=== PATIENT | female | born 1950 | race Caucasian/White ===

== ENCOUNTER 2018-06-02 05:51 | Observation (INO) | payer MEDICARE, MEDICAID ==
[~2018-06-02 05:51] MED LIST: ABILIFY 5 MG TAB5 MG PO; ADVAIR HFA 230M12 GM INH; AMBIEN 5 MG TABL5 M1 PO; AMLODIPINE; AMLODIPINE BESY10 MG PO; AMLODIPINE BESYL5 MG; ANTIVERT25 MG PO; ASPIR 8181 MG PO; ASPIRIN EC81 M1; ASPIRIN325 PO; BACLOFEN20 MG PO; BACTRIM DS TAB1 EACH PO; BUSPIRONE HCL10 MG PO; CALCIUM 600 +1 EAC1 PO; CALCIUM PO; CARVEDILOL6.25 MG; CELEBREX 200 M200 M1 PO; CLARITIN10 MG PO; CLEOCIN HCL150 MG PO; CLORAZEPATE DI7.5 M1; COLACE100 MG PO; CYCLOBENZAPRINE; CYMBALTA30 MG; CYMBALTA30 MG PO; CYMBALTA60 MG; DALIRESP500 MCG PO; DEPAKENE250 MG PO; DETROL LA4 MG; DETROL2 M1 PO; DILAUDID 2 MG TA2 MG PO; DOXEPIN 10 MG C10 M1 PO; DOXEPIN 10 MG C10 MG; DOXEPIN HCL100 MG; DULCOLAX5 MG PO; EFFEXOR XR150 MG; FENOFIBRATE160 MG PO; FERRO-TIME325 MG; FERROCITE324 M1 PO; FISH OIL 1,001000 M2 PO; FLEXERIL PO; FLONASE 0.05%50 MCG NASAL; FOLIC ACID1 MG PO; GABAPENTIN 100100 MG PO; GABAPENTIN100 MG; GLYCOLAX255 GM PO; HYDROCODONE-AP1 EAC6 PO; HYDROXYZINE HCL25 M1 PO; HYDROXYZINE PAM25 M1; IRON325 MG PO; IRON325 PO; LEVOTHYROXIN0.112 M1; LEVOTHYROXIN0.125 M1 PO; LIORESAL 10 MG10 MG PO; LIPITOR10 MG PO; LISINOPRIL10 MG; LISINOPRIL10 MG PO; LOPRESSOR25 PO; MAG-AL LIQUID30 ML PO; MAGNESIUM400 MG; MELATONIN3 MG PO; MELATONIN5 M1 PO; MILK OF MA2400 MG/10 PO; MIRABEGRON PO; MIRALAX17 GM PO; MOTION RELIEF25 MG PO; MYRBETRIQ25 MG PO; NORCO 5-325 TA1 EACH PO; OLANZAPINE7.5 MG PO; ONDANSETRON HCL4 M2 PO; OXYCODONE HCL 55 MG PO; OYSTER SHELL C1 EA15; PHENERGAN 25 MG25 M1 PO; PLAVIX 75 MG TA75 M1 PO; PRINIVIL10 MG PO; PROAIR HFA8.5 GM INH; PROTONIX40 M1 PO; PROTONIX40 M2; PULMICORT0.25 MG/3 INH; REMERON 30 MG T30 M1 PO; REMERON15 MG PO; SPIRIVA INH; SPIRIVA18 MCG INH; SYMBICORT160 MCG/4. INH; SYNTHROID PO; TOLTERODINE TART4 MG PO; TOPROL XL25 MG PO; TRANXENE T-TAB7.5 MG PO; TRICOR; TRICOR145 MG; UNICOMPLEX M TA1 TA1 PO; VALIUM5 MG PO; VITAMIN B-12500 MCG PO; VITAMIN D1000 UNI1; VITAMIN D2000 UNIT PO; VITAMINC500 PO; XARELTO10 MG PO; ZANAFLEX4 M1 PO; ZANAFLEX4 MG PO; ZANTAC 150MG T150 MG PO; ZINC10 MG PO; ZYRTEC10 M5 PO; [UNRECOGNIZED DRUG - CODE]; [UNRECOGNIZED DRUG - REMARK]
[2018-06-02 06:34] LABS: ABSOLUTE BASOPHILS 0.1 thou/uL (0.0-0.2); ABSOLUTE EOSINOPHILS 0.4 thou/uL (0.0-0.7); ABSOLUTE LYMPHOCYTES 2.4 thou/uL (0.8-5.3); ABSOLUTE MONOCYTES 0.8 thou/uL (0.0-1.2); ABSOLUTE NEUTROPHILS 6.6 thou/uL (1.6-8.1); BASOPHILS 1.1 %; EOSINOPHILS 4.1 %; HEMOGLOBIN 13.7 gm/dL (12.0-15.0); LYMPHOCYTES 23.2 %; MCH 33.7 pg (26.0-34.0); MCHC 34.2 g/dL (28.0-37.0); MCV 98.6 fL (80.0-100.0); MONOCYTES 8.1 %; MPV 8.8 fl. (7.2-11.1); NUCLEATED RBCS 0 /100WBC; PLATELET COUNT* 253 thou/uL (150-400); POLYS 63.5 %; RBC 4.05 mil/uL (4.20-5.00); RDW-CV 12.6 % (10.5-14.5); WBC 10.4 thou/uL (4.0-11.0)
[2018-06-02 06:41] LABS: CALCIUM 9.6 mg/dL (8.5-10.1); POTASSIUM 3.9 mmol/L (3.5-5.1)
[2018-06-02 06:44] LABS: APTT 28.1 Seconds (25.0-31.3); PROTIME 10.5 Seconds (9.20-11.50)
--- NOTE | 2018-06-02 10:47 | EKG ---
[place] [address] ELECTROCARDIOGRAM REPORT Name: JULIETTE GRANT Room: [facility]#: [id number] Admission: 06/02/18 Attend Phys: Carrington Meng DO Discharge: Date of : 48 Report #: [id number] THIS REPORT FOR: //name// [facility] Test Date: 2018-06-02 Test Time: 06:52:16 Pat Name: JULIETTE GRANT Department: Room: Gender: F Motion Picture Camera Operator: WHITNEY : 1950 Requested By: Carrington Meng Order Number: [id number] Luciana MD: Anthony Stewart Measurements Intervals [place] Rate: 62 P: 82 OR: 222 QRS: 79 QRSD: 106 T: 60 QT: 433 QTc: 440 Interpretive Statements Sinus rhythm Prolonged OR interval Consider left atrial enlargement Consider RVH or posterior infarct Nonspecific T abnormalities, anterior leads Baseline wander in lead(s) V2,V3,V5 Compared to ECG 10/13/2016 18:29:35 First degree AV block now present Myocardial infarct finding now present T-wave abnormality now present Electronically Signed On 06-02-2018 10:46:48 CDT by Anthony Stewart [email or web address] <ELECTRONICALLY SIGNED> By: Anthony Stewart MD, [facility] 06/02/18 1046 0652 0652 Anthony Stewart MD, [facility] /EPI
[2018-06-02 12:20] VITALS: BP 109/60
--- NOTE | 2018-06-02 12:57 | NUR ---
PT CONCERNED THAT SHE DOES NOT HAVE HER BLACK PURSE. SPOKE W/PT'S FRIEND LORRIE, AND LORRIE HAS PT'S BLACK PURSE. LORRIE TO CONTACT PT BY PHONE TO LET HER KNOW THAT SHE HAS HER PURSE.
--- NOTE | 2018-06-02 14:17 | NUR ---
PATIENT ARRIVED TO THE UNIT AT 1210. ALERT AND ORIENTED X4. ASSESSMENT COMPLETED AND CHARTED. VSS ON ROOM 4 LITERS 02. PATIENT ADMITTED FOR PAIN CONTROL AFTER OUTPATIENT SHOULDER SURGERY. PATIENT SETTLED INTO ROOM AND STATES PAIN OF 10 OUT OF 10. PATIENT ALLOWED TO REST AND STATES THAT PAIN HAS GONE DOWN TO 7 OUT OF 10. PATIENTS HOME MEDICATIONS WERE STARTED BUT PATIENT DOES NOT RECALL WHAT MEDICATIONS SHE HAD ALREADY TAKEN THIS MORNING, ALL MORNING HOME MEDS HELP UNTIL NURSE CAN VERIFY WHAT HAS BEEN TAKEN. PATIENT RESTING COMFORTABLY IN BED AT THIS TIME. HOURLY ROUNDS BEING MAINTAINED, CALL LIGHT WITHIN REACH, NURSING WILL CONTINUE TO MONITOR.
[2018-06-02 14:20] VITALS: BP 118/61
[2018-06-02 16:54] VITALS: BP 137/72
[2018-06-02 17:25] VITALS: BP 137/72
--- NOTE | 2018-06-02 18:22 | NUR ---
PATIENTS VITALS REMAIN STABLE, BLOOD PRESSURE HAS STABALIZED AND 02 HAS RETURNED TO BASELINE WITH SAT OF 97% ON 2 LITERS, WHICH SHE WEARS AT HOME. PAIN HAS BEEN MANAGED PAIN MEDICATION AND HAS DECREASED IN INTESITY. PATIENT HAS HOME HEALTH ALREADY COMING TO THE HOME AND SOMEONE TO STAY WITH HER THIS EVENING. DISCHARGED AT 1820, ALL PERSONAL BELONGINGS, PRESCRIPTIONS AND DISCHARGE INFORMATION SENT WITH PATIENT UPON DISCHARGE.
--- NOTE | 2018-06-14 08:10 | OP ---
[address] [address] OPERATIVE REPORT Name: JULIETTE GRANT Cyn Room: [address] [place]#: [id number] Admission: 06/02/18 Attend Phys: Junito Flores, Discharge: 06/02/18 Date of : 48 Report #: [id number] THIS REPORT FOR: //name// CC: Carrington Escamilla Sheldon DICTATED BY: Fernando Becerra DO DATE OF SERVICE: 06/02/2018 DIAGNOSES: 1. Left shoulder rotator cuff tear. 2. Left shoulder impingement syndrome. 3. Left shoulder type 2 SLAP tear with biceps tendinosis. 4. Left carpal tunnel syndrome. PROCEDURE: 1. Left shoulder arthroscopic surgery with arthroscopic rotator cuff repair, biceps tenotomy and debridement of labrum, subacromial decompression and acromioplasty. 2. Left carpal tunnel release. SURGEON: Carrington Meng DO FOOD DEMONSTRATOR: 1. Fernando Becerra DO 2. Pradeep Sullivan DO ANESTHESIA: General and local. ESTIMATED BLOOD LOSS: 5 mL. SPECIMENS: None. DRAINS: None. COMPLICATIONS: None. CONDITION: The patient is stable to PACU. DISPOSITION: PACU to home. INDICATIONS FOR PROCEDURE: The patient is a pleasant 67-year-old female who has had several months of left shoulder pain with progressive weakness and inability to carry out tasks with this extremity. She also has complained of numbness and tingling in the median nerve distribution. She had an EMG demonstrating [facility] [address] [place] [address] OPERATIVE REPORT Name: JULIETTE GRANT Room: [address] [place]#: [id number] Admission: 06/02/18 Attend Phys: Junito Flores, Discharge: 06/02/18 Date of : 48 Report #: [id number] carpal tunnel syndrome on the left. She also had an MRI of her shoulder demonstrating a full thickness supraspinatus tendon tear as well as bicipital labral pathology. It is recommended she be a candidate for arthroscopic shoulder surgery with rotator cuff repair and all other indicated procedures as well as a carpal tunnel release on the left. All risks, benefits, complications, indications and alternatives were reviewed with the patient and wished to proceed. DESCRIPTION OF PROCEDURE: The patient was brought to the operative suite and placed supine on a well-padded table, given the benefits of general anesthesia. At that time, she was positioned in the beach chair position. The left upper extremity was then sterilely prepped and draped in standard fashion. Timeout was taken to ensure correct patient, procedure, operative site, everybody in the room was in agreeance. At that time, a 11 blade scalpel was used to establish posterior portal incision. Blunt trocar was introduced followed by arthroscopic camera. Upon entering the joint, the subscapularis tendon was visualized and was found to be stable. There was a large [place] complex noted with a large sublabral foramen and a thickened middle glenohumeral ligament. There was degenerative tearing at the biceps insertion on the superior labrum consistent with a type 2 SLAP tear. There is mild degenerative change of the chondral surface. There is also a full thickness supraspinatus tendon tear encountered that could be seen from the undersurface of the rotator cuff. We then used an 18 gauge needle to establish an anterior portal. A blunt trocar was introduced. We then used an arthroscopic scissor to perform biceps tenotomy. Arthroscopic shaver was used to debride the undersurface of the rotator cuff as well as the bicipital labral stump. Once this was done, we transitioned to the subacromial position posteriorly. We performed a subacromial decompression with acromioplasty removing a large bone spur from the undersurface of the acromion. She had a type 3 Bigliani acromion. We then were able to better visualize our supraspinatus full thickness rotator cuff tear. We used arthroscopic shaver to debride the rotator cuff footprint. We then elected to go with a SpeedFix fixation method. We used #2 FiberTape from [employer] and passed this in a horizontal fashion. We also took a FiberLink and incorporated this into our rotator cuff tear. We then pulled this down to a single 4.75 mm SwiveLock. Once this was done, final arthroscopic images were taken with adequate holiness of the rotator cuff on the greater tuberosity at its bill moore's slough footprint. We took final arthroscopic images, removed all instruments and closed the portals with 3-0 nylon in simple interrupted fashion. Xeroform, 4 x 4s, ABD and Medipore tape were applied here at the end of the case. Prior to that, however, we then addressed the carpal tunnel syndrome. We unwrapped the hand and wrist, which had been wrapped sterilely and originally prepped. We then marked out our incision in line with the third webspace and the radial border of the fourth digit. We made a skin incision through skin and subcutaneous tissue. Once the transverse carpal ligament was encountered, we carefully incised this in line with the median nerve until the median nerve was visualized. We then used a tenotomy scissor to free [place] [address] OPERATIVE REPORT Name: JULIETTE GRANT Room: [address] [place]#: [id number] Admission: 06/02/18 Attend Phys: Junito Flores, Discharge: 06/02/18 Date of : 48 Report #: [id number] transverse carpal ligament and remove any adhesions that may be present. Tethering the nerve, we then carefully under direct visualization over scissor tips incised the transverse carpal ligament. Once the transverse carpal ligament was completely incised and the nerve was decompressed, we irrigated the wound with normal saline and closed this with 5-0 nylon in a simple interrupted fashion. Xeroform, 4 x 4s, Kerlix and Liban bandage were applied. A slingshot immobilizer placed for her immobilization for rotator cuff repair. She was then awoken from anesthesia and brought to PACU in stable condition. <ELECTRONICALLY SIGNED> By: Todd Rutherford DO 06/14/18 0810 0929 1039Alan Otis Meng DO /luis
== END 2018-06-02 18:20 | disposition home health service (06) ==
LOC: M.SUR 05:51 → M.ORTHSURG 12:42 → M.TBA 12:42 → M.ORTHSURG 12:48
PROVIDERS: Orthopaedic Surgery; ADMIT Family Medicine
DX: M75.102 Unspecified rotator cuff tear or rupture of left shoulder, not specified as traumatic (principal); M75.42 Impingement syndrome of left shoulder; M75.22 Bicipital tendinitis, left shoulder; S43.432A Superior glenoid labrum lesion of left shoulder, initial encounter; G56.02 Carpal tunnel syndrome, left upper limb; I10 Essential (primary) hypertension; E78.00 Pure hypercholesterolemia, unspecified; J44.9 Chronic obstructive pulmonary disease, unspecified; R53.1 Weakness; I95.81 Postprocedural hypotension; G89.18 Other acute postprocedural pain; F32.9 Major depressive disorder, single episode, unspecified; F41.9 Anxiety disorder, unspecified; I25.2 Old myocardial infarction; R79.1 Abnormal coagulation profile; Z87.891 Personal history of nicotine dependence

== ENCOUNTER 2018-08-19 13:34 | Emergency (ER) | payer MEDICARE, MEDICAID ==
[~2018-08-19] VITALS: Ht 152.4 cm; Wt 69.0 kg
[2018-08-19] MEDS ORDERED: SYNTHROID112 MC1 PO (14:01)
[2018-08-19 14:30] LABS: ABSOLUTE BASOPHILS 0.1 thou/uL (0.0-0.2); ABSOLUTE EOSINOPHILS 0.3 thou/uL (0.0-0.7); ABSOLUTE LYMPHOCYTES 2.2 thou/uL (0.8-5.3); ABSOLUTE MONOCYTES 1.1 thou/uL (0.0-1.2); ABSOLUTE NEUTROPHILS 6.7 thou/uL (1.6-8.1); BASOPHILS 0.7 %; EOSINOPHILS 3.4 %; HEMATOCRIT 42.2 % (37.0-47.0); HEMOGLOBIN 14.3 gm/dL (12.0-15.0); MCH 33.8 pg (26.0-34.0); MCHC 33.8 g/dL (28.0-37.0); MCV 100.1 fL (80.0-100.0); MONOCYTES 10.8 %; MPV 8.3 fl. (7.2-11.1); NUCLEATED RBCS 0 /100WBC; PLATELET COUNT* 289 thou/uL (150-400); POLYS 64.1 %; RBC 4.22 mil/uL (4.20-5.00); RDW-CV 12.2 % (10.5-14.5); WBC 10.4 thou/uL (4.0-11.0)
[2018-08-19 14:35] LABS: CALCIUM 9.5 mg/dL (8.5-10.1); POTASSIUM 4.2 mmol/L (3.5-5.1)
[2018-08-19 14:39] LABS: TOTAL BILIRUBIN 0.3 mg/dL (<0.1-1.0); TOTAL PROTEIN 6.8 g/dL (6.4-8.2)
[2018-08-19 15:12] LABS: URINE BILIRUBIN NEGATIVE (Negative); URINE BLOOD NEGATIVE (Negative); URINE CLARITY CLEAR; URINE COLOR STRAW; URINE GLUCOSE-RANDOM NEGATIVE (Negative); URINE KETONES NEGATIVE (Negative); URINE LEUKOCYTES-REFLEX NEGATIVE (Negative); URINE NITRITE-REFLEX NEGATIVE (Negative); URINE PROTEIN NEGATIVE (Negative); URINE SPECIFIC GRAVITY <= 1.005 (1.005-1.030); URINE UROBILINOGEN 0.2 E.U./dl (0.2-1.0)
[2018-08-19 15:16] LABS: AMP/METHAMP Negative (Negative); BARBITURATES Negative (Negative); BENZODIAZEPINES POSITIVE (Negative); COCAINE Negative (Negative); METHADONE Negative (Negative); OPIATES POSITIVE (Negative); PCP Negative (Negative); THC Negative (Negative)
[2018-08-19 15:35] VITALS: BP 139/65
== END 2018-08-19 15:35 | disposition home or self-care (01) ==
LOC: M.ERS 13:34
PROVIDERS: Nurse Practitioner Family
DX: T43.591A Poisoning by other antipsychotics and neuroleptics, accidental (unintentional), initial encounter (principal); I10 Essential (primary) hypertension; E78.00 Pure hypercholesterolemia, unspecified; F32.9 Major depressive disorder, single episode, unspecified; F41.9 Anxiety disorder, unspecified; Z90.49 Acquired absence of other specified parts of digestive tract; Z90.710 Acquired absence of both cervix and uterus; Z96.641 Presence of right artificial hip joint; Z96.653 Presence of artificial knee joint, bilateral; Z88.6 Allergy status to analgesic agent; Z88.0 Allergy status to penicillin; Z88.8 Allergy status to other drugs, medicaments and biological substances; Y92.89 Other specified places as the place of occurrence of the external cause

== ENCOUNTER 2018-10-06 17:40 | Inpatient (IN) | payer MEDICARE, MEDICAID ==
[~2018-10-06] VITALS: Ht 152.4 cm; Wt 68.5 kg
[~2018-10-06 17:40] MED LIST changes: -ASPIRIN325 PO; +SYNTHROID112 MC1 PO
[2018-10-06 17:59] VITALS: BP 155/66
[2018-10-06] MEDS ORDERED: GABAPENTIN 100100 MG PO (18:33)
[2018-10-06] MEDS ORDERED: DALIRESP500 MCG PO (18:35)
[2018-10-06] MEDS ORDERED: PRAZOSIN 1 MG CA1 M1 PO (18:37)
[2018-10-06] MEDS ORDERED: CLORAZEPATE DI7.5 M2 PO (18:38)
[2018-10-06] MEDS ORDERED: VITAMINC500 PO (18:39)
[2018-10-06] MEDS ORDERED: VITAMIN D5000 UNIT PO (18:40)
[2018-10-06] MEDS ORDERED: TUMS PO (18:41)
[2018-10-06] MEDS ORDERED: MAGOX 400400 MG PO (18:46)
[2018-10-06] MEDS ORDERED: ZINC50 M2 PO (18:46)
[2018-10-06] MEDS ORDERED: ZOLOFT50 MG PO (18:47)
[2018-10-06] MEDS ORDERED: AZITHROMYCIN 2250 MG PO (18:48)
[2018-10-06] MEDS ORDERED: GLYCOLAX119 GM PO (18:49)
[2018-10-06] MEDS ORDERED: FLONASE 0.05%50 MCG NASAL (18:50)
[2018-10-06] MEDS ORDERED: SYMBICORT160 MCG/4. INH (18:51)
[2018-10-06] MEDS ORDERED: ADVAIR HFA 230M12 GM INH (18:51)
[2018-10-06 18:55] LABS: ABSOLUTE BASOPHILS 0.1 thou/uL (0.0-0.2); ABSOLUTE EOSINOPHILS 0.1 thou/uL (0.0-0.7); ABSOLUTE LYMPHOCYTES 1.5 thou/uL (0.8-5.3); ABSOLUTE MONOCYTES 0.9 thou/uL (0.0-1.2); ABSOLUTE NEUTROPHILS 6.1 thou/uL (1.6-8.1); BASOPHILS 0.8 %; EOSINOPHILS 1.3 %; HEMATOCRIT 41.3 % (37.0-47.0); HEMOGLOBIN 14.5 gm/dL (12.0-15.0); LYMPHOCYTES 17.1 %; MCH 34.6 pg (26.0-34.0); MCHC 35.1 g/dL (28.0-37.0); MCV 98.6 fL (80.0-100.0); MONOCYTES 10.6 %; MPV 8.2 fl. (7.2-11.1); NUCLEATED RBCS 0 /100WBC; PLATELET COUNT* 267 thou/uL (150-400); POLYS 70.2 %; RBC 4.19 mil/uL (4.20-5.00); RDW-CV 12.6 % (10.5-14.5); WBC 8.7 thou/uL (4.0-11.0)
[2018-10-06 19:10] LABS: ANION GAP 4 mmol/L (7-16); BUN 15 mg/dL (7-18); CALCIUM 10.4 mg/dL (8.5-10.1); CHLORIDE 94 mmol/L (98-107); CO2 35 mmol/L (21-32); CREATININE 0.8 mg/dL (0.6-1.3); GLUCOSE 112 mg/dL (70-99); POTASSIUM 4.6 mmol/L (3.5-5.1); SODIUM 133 mmol/L (136-145)
[2018-10-06 19:11] LABS: ALBUMIN 3.7 g/dL (3.4-5.0); ALKALINE PHOSPHATASE 61 U/L (46-116); NT-PRO BRAIN NAT PEPTIDE 213 pg/mL (<300); SGOT 30 U/L (15-37); SGPT 30 U/L (30-65); TOTAL BILIRUBIN 0.3 mg/dL (<0.1-1.0); TROPONIN-I LEVEL <0.06 ng/mL (<0.06)
[2018-10-06 19:16] LABS: INFLUENZA A ANTIGEN None Detected (None Detect); INFLUENZA B ANTIGEN None Detected (None Detect)
[2018-10-06 19:55] LABS: HCO3 33.8 mmol/L (22.0-26.0); PO2 67.4 mmHg (75.0-100.0)
[2018-10-06 19:57] LABS: PCO2 62.6 mmHg (35.0-45.0)
[2018-10-06 20:29] VITALS: BP 139/69
[2018-10-06 21:00] VITALS: BP 133/67
[2018-10-07 07:55] VITALS: BP 104/59
[2018-10-07 11:03] LABS: BE 0.8 mmol/L (-2 to +3); HCO3 26.1 mmol/L (22.0-26.0); PCO2 44.1 mmHg (35.0-45.0); PO2 86.4 mmHg (75.0-100.0)
--- NOTE | 2018-10-07 12:42 | EKG ---
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: JOSE : 1950 Requested By: Kamilah Melendez Order Number: [id number] MD: Anthony Stewart Measurements Intervals [place] Rate: 74 P: 69 TN: 190 QRS: 54 QRSD: 104 T: 55 QT: 395 QTc: 439 Interpretive Statements Sinus rhythm Compared to ECG 06/02/2018 06:52:16 First degree AV block no longer present Myocardial infarct finding no longer present T-wave abnormality no longer present Electronically Signed On 10-07-2018 12:41:50 CLINICAL MASSAGE THERAPIST by Anthony Stewart [email or web address] <ELECTRONICALLY SIGNED> By: Anthony Stewart MD, FACC 10/07/18 1241 12 12 Anthony Stewart MD, FAC /EPI
[2018-10-07 15:52] VITALS: BP 129/58
--- NOTE | 2018-10-07 18:33 | NUR ---
PATIENT A&OX4, 2L O2 VIA NC, IV LEFT WRIST FLUIDS INFUSSING. UP AD ISABEL, STEADY GAIT. C/O HEADACHE, PARTIAL RELIEF WITH MEDICATION. HOME MEDICATION BROUGHT IN AND ADMINISTER, REHAN IN [place]. NO OTHER CONCERNS AT THIS TIME. APPROPRIATE AND COOPORATIVE WITH CARE. WILL CONTINUE TO MONITOR.
[2018-10-07 22:00] VITALS: BP 119/57
[2018-10-08 05:00] LABS: HEMATOCRIT 35.1 % (37.0-47.0); MCH 33.5 pg (26.0-34.0); MCHC 33.8 g/dL (28.0-37.0); MPV 8.6 fl. (7.2-11.1); RBC 3.54 mil/uL (4.20-5.00); RDW-CV 12.4 % (10.5-14.5)
[2018-10-08 05:20] LABS: HEMOGLOBIN 11.9 gm/dL (12.0-15.0)
[2018-10-08 05:22] LABS: CALCIUM 8.8 mg/dL (8.5-10.1); CREATININE 0.8 mg/dL (0.6-1.3); MAGNESIUM 1.4 mg/dL (1.8-2.4); POTASSIUM 4.7 mmol/L (3.5-5.1); TOTAL BILIRUBIN 0.2 mg/dL (<0.1-1.0); TOTAL PROTEIN 5.3 g/dL (6.4-8.2)
--- NOTE | 2018-10-08 06:04 | NUR ---
PATIENT HAS NOT RESTED WELL THIS SHIFT, WOULD LIKE TO GET SOMETHING ORDERED FOR SLEEP FOR TONIGHT. VITAL SIGNS HAVE BEEN STABLE ON 2 LITERS OF OXYGEN. UP AD ISABEL IN ROOM. CALL LIGHT IS IN REACH, WILL CONTINUE TO MONITOR.
[2018-10-08 07:55] VITALS: BP 139/64
[2018-10-08 15:00] VITALS: BP 129/59
--- NOTE | 2018-10-08 17:59 | NUR ---
PATIENT A&OX4, 2L O2 VIA NC. IV LEFT FOREARM FLUIDS INFUSSING. UP AD ISABEL, STEADY GIAT. C/O SORE THROAT, CHLORASEPTIC SPRAY ORDERED PRN. NO SIGNS OF THRUSH NOTED. PATIENT STATES SHE TAKES MECLIZINE QID SCHEDULED AT HOME, GIVEN PRN HERE. AMBIAN STARTED FOR SLEEP AIDE. C/O HEADACHE, RELEIF WITH MEDICATION. SHOWER TODAY. NO OTHER CONCERNS AT THIS TIME. APPROPRIATE AND COOPORATIVE WITH CARE. WILL CONTINUE TO MONITOR.
[2018-10-08 19:40] VITALS: BP 101/53
--- NOTE | 2018-10-09 06:36 | NUR ---
PATIENT RESTED WELL THROUGH OUT THE SHIFT, SAID SLEEPIN MEDICATION HELPED. UP AD ISABEL IN ROOM WITH OXYGEN EXTENSION TUBING. VITAL SIGNS STABLE ON 2 LITERS OF OXYGEN. CALL LIGHT IS IN REACH, WILL CONTINUE TO MONITOR.
[2018-10-09 08:00] VITALS: BP 119/65
--- NOTE | 2018-10-09 15:12 | NUR ---
SW met with pt to complete initial assessment, introduce self, and SW role. Pt alert, oriented. Pt lives at home alone but does have in home caregivers 4 hours a day, everyday. Pt has home oxygen through [facility]. Pt has history with [facility] for SNF after a hip replacement. SW to continue to follow to assist with safe dc planning.
--- NOTE | 2018-10-09 15:45 | NUR ---
PT ORDERS RECEIVED FOR EVALUATION AND TREATMENT ON 10/07/18. EVALUATION COMPLETED ON 10/07/18. PT WAS INDEPENDENT WITH ALL FUNCTIONAL MOBILITY W/O DME SUPPORT INCLUDING MOD INDEP FOR AMBULATION UP/DOWN 6 STEPS. PT DISCHARGED FROM PT SERVICES 2/2 INDEP STATUS AND ACUTE PT SERVICES NOT INDICATED AT THIS TIME. SPOKE W/ NSG REGARDING RECEIPT OF NEW ORDERS TO EVALUATE AND TREAT INITIATED ON 10/09/18. NSG INDICATES PT IS UP AD ISABEL IN ROOM INDEPENDENT AND HAS NOT SUSTAINED A CHANGE IN MEDICAL STATUS SINCE LAST PT EVAL. NO ACUTE PT SERVICES ARE INDICATED AT THIS TIME.
[2018-10-09 16:04] VITALS: BP 137/63
--- NOTE | 2018-10-09 17:35 | NUR ---
PT REMAINED ALERT AND ORIENTED THIS SHIFT. PT IV FLUDIS DC'D. PT IV INFILTRATED, NEW IV STARTED IN RT FA BY INFUSIONS. PT IS STILL ON 2 LITERS O2. FALL RISK PRECAUTIONS IN PLACE. HOURLY ROUNDING COMPELTED. WILL CONTINUE TO MONITOR.
[2018-10-10 00:32] VITALS: BP 141/58
[2018-10-10 04:00] LABS: CALCIUM 9.9 mg/dL (8.5-10.1); MAGNESIUM 1.6 mg/dL (1.8-2.4); POTASSIUM 4.4 mmol/L (3.5-5.1)
[2018-10-10 04:03] LABS: HEMATOCRIT 36.2 % (37.0-47.0); HEMOGLOBIN 12.6 gm/dL (12.0-15.0); MCH 34.3 pg (26.0-34.0); MCHC 34.7 g/dL (28.0-37.0); MPV 8.4 fl. (7.2-11.1); NUCLEATED RBCS 0 /100WBC; PLATELET COUNT* 271 thou/uL (150-400); RBC 3.66 mil/uL (4.20-5.00); RDW-CV 12.6 % (10.5-14.5); WBC 12.5 thou/uL (4.0-11.0)
[2018-10-10 06:09] LABS: ABSOLUTE LYMPHOCYTES 0.9 thou/uL (0.8-5.3); ABSOLUTE MONOCYTES 0.5 thou/uL (0.0-1.2); ABSOLUTE NEUTROPHILS 11.1 thou/uL (1.6-8.1); PLATELET ESTIMATE ADEQUATE
[2018-10-10 06:10] LABS: ANISOCYTOSIS 1+; POIKILOCYTOSIS 1+
--- NOTE | 2018-10-10 06:36 | NUR ---
PT SLEPT WELL OVERNIGHT. UP AD ISABEL IN ROOM WITH O2 2L AND EXTENSION TUBING. RFA SL, SOLUMEDROL GIVEN ORDERED. TYLENOL GIVEN AT HS FOR HEADACHE WITH GOOD RESULT. AM LABS DRAWN. ABLE TO USE CALL LITE AND MAKE NEEDS KNOWN. RT TX GIVEN SCHEDULED. HOPEFUL FOR DISCHARGE SOON.
[2018-10-10 07:55] VITALS: BP 142/67
[2018-10-10] MEDS ORDERED: LOPRESSOR25 PO (14:29)
[2018-10-10] MEDS ORDERED: LEVAQUIN 750 M750 MG PO (14:32)
[2018-10-10] MEDS ORDERED: PREDNISONE 10 M10 MG PO (14:33)
[2018-10-10 15:28] VITALS: BP 142/67
[2018-10-10 15:58] VITALS: BP 142/67
[2018-10-10 17:57] VITALS: BP 142/67
--- NOTE | 2018-10-10 18:32 | NUR ---
PATIENT A&OX4, 2L O2 VIA NC, ON AT HOME. IV RIGHT FOREARM SALINE LOCK. IV INFILTRATED, REDNESS AND SWELLING NOTED. IV DISCONTINUED, CATHETER FULLY INTACT. HEAT APPLIED, REDNESS AND SWELLING DECREASED. C/O HEADACHE, RELIEF WITH MEDICATION AND COFFEE. UP AD ISABEL, STEADY GAIT. NO OTHER CONCERNS AT THIS TIME. PATIENT DISCHARGED, REVIEWED PAPERWORK ALL QUESTIONS AND CONCERNS ANSWERED. NEW PRESCRIPTIONS GIVEN. PATIENT LEFT UNIT AT 1830 VIA W/C WITH FAMILY FRIEND. ALL BELONGINGS TAKEN WITH, NOTHING LEFT BEHIND. APPROPRIATE AND COOPORATIVE WITH CARE.
[2018-10-11 02:06] LABS: ADENOVIRUS Negative (Negative); INFLUENZA A Negative (Negative); INFLUENZA B Negative (Negative); METAPNEUMOVIRUS Negative (Negative); PARAINFLUENZA 1 Negative (Negative); PARAINFLUENZA 2 Negative (Negative); PARAINFLUENZA 3 Negative (Negative); RHINOVIRUS Negative (Negative); RSV A Negative (Negative); RSV B Negative (Negative)
== END 2018-10-10 18:30 | disposition home health service (06) | DRG 871 ==
LOC: M.ERS 17:40 → M.TBA-ER 19:31 → M.3W 19:31
PROVIDERS: Family Medicine; Internal Medicine; Nurse Practitioner Family; ADMIT Internal Medicine
DX: A41.9 Sepsis, unspecified organism (principal); J96.21 Acute and chronic respiratory failure with hypoxia; J44.1 Chronic obstructive pulmonary disease with (acute) exacerbation; I10 Essential (primary) hypertension; E78.00 Pure hypercholesterolemia, unspecified; Z96.653 Presence of artificial knee joint, bilateral; F32.9 Major depressive disorder, single episode, unspecified; F41.9 Anxiety disorder, unspecified; Z96.641 Presence of right artificial hip joint; Z90.710 Acquired absence of both cervix and uterus; Z87.891 Personal history of nicotine dependence; I25.2 Old myocardial infarction; Z95.5 Presence of coronary angioplasty implant and graft; Z90.49 Acquired absence of other specified parts of digestive tract; Z79.82 Long term (current) use of aspirin; Z79.899 Other long term (current) drug therapy; Z88.0 Allergy status to penicillin; Z88.8 Allergy status to other drugs, medicaments and biological substances; Z82.49 Family history of ischemic heart disease and other diseases of the circulatory system; Z23 Encounter for immunization

== ENCOUNTER → 2019-04-19 | Outpatient (CLI) | payer MEDICARE, MEDICAID ==
[~2019-04-19] MED LIST changes: +AZITHROMYCIN 2250 MG PO; +CLORAZEPATE DI7.5 M2 PO; +GLYCOLAX119 GM PO; +LEVAQUIN 750 M750 MG PO; +MAGOX 400400 MG PO; +PRAZOSIN 1 MG CA1 M1 PO; +PREDNISONE 10 M10 MG PO; +TUMS PO; +VITAMIN D5000 UNIT PO; +ZINC50 M2 PO; +ZOLOFT50 MG PO
== END ==
LOC: M.LAB 12:30 → M.MRI 13:30
PROVIDERS: Orthopaedic Surgery
DX: G57.21 Lesion of femoral nerve, right lower limb (principal); Z96.641 Presence of right artificial hip joint; Z96.651 Presence of right artificial knee joint

== ENCOUNTER → 2019-06-04 | Outpatient (CLI) | payer MEDICARE, MEDICAID | LOC: M.MRI 16:39 | DX: M25.461 Effusion, right knee (principal); M79.661 Pain in right lower leg ==

== ENCOUNTER 2019-06-10 09:44 | Emergency (ER) | payer MEDICARE, MEDICAID ==
[~2019-06-10] VITALS: Ht 152.4 cm; Wt 66.7 kg
[2019-06-10 10:17] LABS: ABSOLUTE BASOPHILS 0.1 thou/uL (0.0-0.2); ABSOLUTE EOSINOPHILS 0.2 thou/uL (0.0-0.7); ABSOLUTE LYMPHOCYTES 1.1 thou/uL (0.8-5.3); ABSOLUTE MONOCYTES 1.1 thou/uL (0.0-1.2); ABSOLUTE NEUTROPHILS 9.2 thou/uL (1.6-8.1); BASOPHILS 0.7 %; EOSINOPHILS 2.1 %; HEMATOCRIT 37.4 % (37.0-47.0); HEMOGLOBIN 12.8 gm/dL (12.0-15.0); LYMPHOCYTES 9.8 %; MCHC 34.2 g/dL (28.0-37.0); MCV 99.3 fL (80.0-100.0); MONOCYTES 9.4 %; MPV 7.8 fl. (7.2-11.1); NUCLEATED RBCS 0 /100WBC; PLATELET COUNT* 270 thou/uL (150-400); RBC 3.77 mil/uL (4.20-5.00); RDW-CV 12.4 % (10.5-14.5); WBC 11.7 thou/uL (4.0-11.0)
[2019-06-10 10:24] LABS: CALCIUM 9.2 mg/dL (8.5-10.1); CREATININE 0.9 mg/dL (0.6-1.3); POTASSIUM 4.3 mmol/L (3.5-5.1)
[2019-06-10 10:29] LABS: ALBUMIN 3.8 g/dL (3.4-5.0); TOTAL BILIRUBIN 0.3 mg/dL (<0.1-1.0); TOTAL PROTEIN 6.4 g/dL (6.4-8.2)
[2019-06-10 11:32] VITALS: BP 129/61
--- NOTE | 2019-06-11 10:26 | EKG ---
[place] [address] ELECTROCARDIOGRAM REPORT Name: JULIETTE GRANT Room: [facility]#: [id number] Admission: 06/10/19 Attend Phys: Discharge: 06/10/19 Date of : 48 Report #: [id number] THIS REPORT FOR: //name// [facility] ED Test Date: 2019-06-10 Test Time: 10:36:59 Pat Name: JULIETTE GRANT Department: Room: Gender: F Melter Caster: : 1950 Requested By: Lorenzo Chowdhury Order Number: [id number] MD: Rigo Gasca Measurements Intervals [place] Rate: 70 P: 68 GA: 189 QRS: 50 QRSD: 102 T: 52 QT: 407 QTc: 440 Interpretive Statements Sinus rhythm Compared to ECG 10/06/2018 19:13:50 No significant changes Electronically Signed On 06-11-2019 10:25:58 CDT by Rigo Gasca [email or web address] <ELECTRONICALLY SIGNED> By: Rigo Gasca MD, [facility] 06/11/19 1025 1036 1036 Rigo Gasca MD, FACC /EPI
== END 2019-06-10 11:38 | disposition home or self-care (01) ==
LOC: M.ERS 09:44
PROVIDERS: Family Medicine
DX: F41.0 Panic disorder [episodic paroxysmal anxiety] (principal); I10 Essential (primary) hypertension; E78.00 Pure hypercholesterolemia, unspecified; I25.2 Old myocardial infarction; F32.9 Major depressive disorder, single episode, unspecified; J44.9 Chronic obstructive pulmonary disease, unspecified; Z90.710 Acquired absence of both cervix and uterus; Z96.653 Presence of artificial knee joint, bilateral; Z98.890 Other specified postprocedural states; Z96.641 Presence of right artificial hip joint; Z95.2 Presence of prosthetic heart valve; Z88.5 Allergy status to narcotic agent; Z88.0 Allergy status to penicillin; Z88.8 Allergy status to other drugs, medicaments and biological substances

== ENCOUNTER → 2019-07-27 | Day surgery (SDC) | payer MEDICARE, MEDICAID ==
[~2019-07-27] MED LIST changes: +CALCIUM CARBON500 MG PO; +FISH OIL 1,0001 EAC9 PO; +MECLIZINE HCL25 MG PO; +METOPROLOL TART25 MG PO; +NORCO 5-325 TA1 EAC1 PO; +TIZANIDINE HCL4 M1 PO; +VITAMIN C1000 MG PO; +VITAMIN D31000 UNI2 PO
[2019-07-27 06:42] LABS: HEMATOCRIT 36.8 % (37.0-47.0); HEMOGLOBIN 12.4 gm/dL (12.0-15.0); MCH 33.9 pg (26.0-34.0); MCHC 33.6 g/dL (28.0-37.0); MCV 100.9 fL (80.0-100.0); MPV 8.9 fl. (7.2-11.1); RBC 3.65 mil/uL (4.20-5.00); WBC 11.4 thou/uL (4.0-11.0)
[2019-07-27 06:53] LABS: CALCIUM 9.4 mg/dL (8.5-10.1); POTASSIUM 4.2 mmol/L (3.5-5.1)
[2019-07-27 07:03] LABS: ALBUMIN 4.1 g/dL (3.4-5.0); TOTAL BILIRUBIN 0.2 mg/dL (<0.1-1.0); TOTAL PROTEIN 6.8 g/dL (6.4-8.2)
--- NOTE | 2019-08-03 09:04 | OP ---
[facility] [address] [place] [address] OPERATIVE REPORT Name: JULIETTE GRANT Room: [facility].#: [id number] Admission: 07/27/19 Attend Phys: Carrington Meng DO Discharge: Date of : 48 Report #: [id number] THIS REPORT FOR: //name// CC: Carrington Castellanos DATE OF SERVICE: 07/27/2019 DICTATED BY: Dr. Alessandro Hansen dictating operative report on behalf of Dr. Carrington Meng. PREOPERATIVE DIAGNOSIS: Right thumb stenosing tenosynovitis (trigger thumb). POSTOPERATIVE DIAGNOSIS: Right thumb stenosing tenosynovitis (trigger thumb). OPERATION PERFORMED: Release of right trigger thumb. SURGEON: Carrington Meng DO INSIDE FINISHER: Alessandro Hansen DO ANTIBIOTICS: 600 mg clindamycin given preoperatively. ESTIMATED BLOOD LOSS: 1 mL. ANESTHESIA: MAC with local infiltration. SPECIMENS: None. DRAINS: None. COMPLICATIONS: None. CONDITION: Stable. DISPOSITION: PACU to home. INDICATIONS FOR PROCEDURE: The patient is a pleasant 68-year-old female [facility] regarding her right thumb clicking and catching for about 4 months. She had tried bracing and anti-inflammatories with no relief of her symptoms. This is becoming very bothersome for her and she was hoping to have something done. Therefore, we did discuss with her treatment options. We discussed risks, indications, and treatment alternatives as well and ultimately her informed consent was signed for [place] [address] OPERATIVE REPORT Name: JULIETTE GRANT Room: [facility].#: [id number] Admission: 07/27/19 Attend Phys: Carrington Meng DO Discharge: Date of : 48 Report #: [id number] DESCRIPTION OF PROCEDURE: The patient was taken to the operating suite and placed on the operating table in supine position where sedation was then given to the patient. The patient's arm was placed on the hand table. A well-padded pneumatic tourniquet was placed on the right proximal thigh. This was inflated for a total of 10 minutes throughout the procedure at 250 mmHg. The right upper extremity was then sterilely prepped and draped free in the usual fashion. A time-out was then performed to confirm our safety checklist was then completed and all of the OR personnel was in agreement. A transverse incision was marked out over the volar aspect of the thumb overlying the metacarpophalangeal joint. Sharp dissection was carried down with a 15 blade scalpel through the skin and blunt dissection was carried down to the level of the A1 jaqueline. The overlying fat tissue was swept off the jaqueline and the jaqueline was completely identified. It was then transected utilizing scissors. The flexor tendons were then pulled from the incision and identified and there was no significant pathology noted. The thumb was taken through full range of motion and there was no residual clicking or catching. The wound was then copiously irrigated and the incision was closed with simple interrupted 4-0 nylon sutures. Sterile bandage was then applied with Xeroform, 4 x 4's, Kerlix and an Liban bandage. The patient tolerated the procedure well and was transferred to the PACU in stable condition. There were no apparent complications. Sponge and needle counts were reported correct per the OR personnel. ATTESTATION: Dr. Meng was present for all critical aspects of the operation. <ELECTRONICALLY SIGNED> By: Carrington Meng DO 08/03/19 0904 0917 0940Carrington Meng DO /nt
== END | disposition home or self-care (01) ==
LOC: M.SUR 05:59
PROVIDERS: Orthopaedic Surgery
DX: M65.841 Other synovitis and tenosynovitis, right hand (principal); M65.311 Trigger thumb, right thumb; J44.9 Chronic obstructive pulmonary disease, unspecified; Z98.890 Other specified postprocedural states; Z86.711 Personal history of pulmonary embolism; Z79.01 Long term (current) use of anticoagulants; Z87.440 Personal history of urinary (tract) infections; Z88.0 Allergy status to penicillin; Z88.8 Allergy status to other drugs, medicaments and biological substances; Z79.899 Other long term (current) drug therapy; Z79.82 Long term (current) use of aspirin

== ENCOUNTER 2019-12-20 11:45 | Emergency (ER) | payer MEDICARE, MEDICAID ==
[~2019-12-20] VITALS: Ht 152.4 cm; Wt 68.0 kg
[2019-12-20] MEDS ORDERED: MEDROLDOSEPACK PO (13:48)
[2019-12-20 14:23] VITALS: BP 142/61
== END 2019-12-20 14:26 | disposition home or self-care (01) ==
LOC: M.ERS 11:45
DX: J44.9 Chronic obstructive pulmonary disease, unspecified (principal); R51 Headache; I10 Essential (primary) hypertension; E78.00 Pure hypercholesterolemia, unspecified; Z88.6 Allergy status to analgesic agent; Z88.0 Allergy status to penicillin; Z88.5 Allergy status to narcotic agent; Z88.8 Allergy status to other drugs, medicaments and biological substances; Z90.710 Acquired absence of both cervix and uterus; Z90.49 Acquired absence of other specified parts of digestive tract; Z96.641 Presence of right artificial hip joint; Z96.653 Presence of artificial knee joint, bilateral

== ENCOUNTER 2021-08-29 01:42 | Observation (INO) | payer MEDICARE, MEDICAID ==
[~2021-08-29] VITALS: Ht 152.4 cm; Wt 72.6 kg
--- NOTE | ~2021-08-29 | EMS ---
[address] [address] EMS Patient Care Report Name: JULIETTE GRANT Room: [address] [place]#: [id number] Admission: 08/29/21 Attend Phys: Shannan Dahl MD Discharge: Date of : 48 Report #: [id number] THIS REPORT FOR: //name// Report Transmitted: 08/29/2021 06:23 EMS Care Summary [facility] [place] Incident [id number] @ 08/29/2021 00:52 Incident Location [address] [place] [address] Patient Juliette Grant Female, 70 Years 1950 Patient Address [address] [place] [address] Patient History Anxiety disorder, unspecified,Personality disorder, unspecified,Anemia, unspecified,Chronic Obstructive Pulmonary Disease (COPD),Gastro-Esophageal Reflux Disease (GERD),Hypothyroidism, unspecified,History of falling, Patient Allergies , Patient Medications cilostazol, , Metoprolol, Clopidogrel, Chief Complaint Shortness of Breath Disposition Transported No Lights/[place] Dispatch Reason Breathing Problem Transported To [facility] Narrative Dispatched for SOA, arrive on scene to the patients nurse meeting EMS at the front door. Nurse states patient is stating she wants to just get out of the [address] [address] EMS Patient Care Report Name: JULIETTE GRANT Room: [address]#: [id number] Admission: 08/29/21 Attend Phys: Shannan Dahl MD Discharge: Date of : 48 Report #: [id number] facility and is stating she has difficulty breathing. Find the patient sitting upright in her room. Patient is currently on her oxygen concentrator and apporximateyl 20 feet of tubing. She does not appear to have any difficulty breathing, I see no obvious elevated work of breathing, she is speaking in full sentences while talking to EMS. SHe has a steady and even radial pulse. Patient states to EMS that her facility it terrible, that they give her bad nasal cannula that will not stay in her nose. Along with not letting her walk outside to gain strength in her legs. She also states that sometimes her concentrator will work and sometimes it does not. She has said her breathing as gotten worse over a week. She does have a history of COPD and does daily inhaler treatments. Primary assessment completed. Obtained patients version of secondary history. Patient was able to walk without incident to the cot without assistance. Fasten all safety belts and loaded into ambulance. Placed patient on the monitor abd obtained vitals. Gained a 12 lead EKG. Obtained IV access. Began transport to [facility]. En route, patient rested comfortably on the cot. I spoke more about how the patient feels about her facility, where she began to cry stating she just did not feel safe there. I stated the to let the hospital know and that they will have some resources to help her. Her vitals were monitored every ten minutes, hey always remained stable. Gave radio report to Ang. Arrived and unloaded patient without incident, took her to ER room 15. She was moved by draw sheet without incident to the bed. Gave report to receiving nurse, highlighting the facility issues the patient has. Obtained RN signature. Witnessed patient sign for herself. Initial Vitals @01:20SpO2: 95, @:25SpO2: 95, @:28SpO2: 93, @01:11 @01:12 @01:14P: 75,R: 18,BP: 150/74, @:28P: 77,R: 18,BP: 149/74, @:14GCS: 15, @:28GCS: 15, @01:00 @01:20Glucose: 115, Assessments @01:00MENTAL:SKIN:HEENT:LUNG SOUNDS:ABDOMEN:PELVIS//GI:EXTREMITIES:PULSE:NEURO: Impression Acute Respiratory Distress (Dyspnea) Procedures @01:06 Oxygen Complications: , Response: [place] [address] EMS Patient Care Report Name: JULIETTE GRANT Room: [address] [place] M.R.#: [id number] Admission: 08/29/21 Attend Phys: Shannan Dahl MD Discharge: Date of : 48 Report #: [id number] @01:19 IV Therapy - cc () Site: Antecubital-Left Response: UnchangedSucceeded @01:11 12-Lead ECG Response: UnchangedSucceeded @01:12 12-Lead ECG Response: UnchangedSucceeded Timeline 00:00,Call Received 00:52,Dispatch Notified 00:52,Psap Call 00:52,Dispatched 00:52,En Route 00:57,On Scene 01:00,At Patient 01:00,BP: / M,PULSE: ,RR: R,SPO2: Ox,ETCO2: ,BG: ,PAIN: ,GCS: , 01:06,Oxygen Complications: ,,Response: Unchanged 01:11,12-Lead ECG,Response: UnchangedSucceeded, 01:11,BP: / M,PULSE: ,RR: R,SPO2: Ox,ETCO2: ,BG: ,PAIN: ,GCS: , 01:12,12-Lead ECG,Response: UnchangedSucceeded, 01:12,BP: / M,PULSE: ,RR: R,SPO2: Ox,ETCO2: ,BG: ,PAIN: ,GCS: , 01:14,BP: 150/74 M,PULSE: 75,RR: 18 R,SPO2: Ox,ETCO2: ,BG: ,PAIN: ,GCS: , 01:14,BP: / M,PULSE: ,RR: R,SPO2: Ox,ETCO2: ,BG: ,PAIN: ,GCS: 15, 01:19,IV Therapy - cc Site: Antecubital-Left,Response: UnchangedSucceeded, 01:20,BP: / M,PULSE: ,RR: R,SPO2: 95 Ox,ETCO2: ,BG: ,PAIN: ,GCS: , 01:20,BP: / M,PULSE: ,RR: R,SPO2: Ox,ETCO2: ,B,PAIN: ,GCS: , 01:22,Depart Scene 01:25,BP: / M,PULSE: ,RR: R,SPO2: 95 Ox,ETCO2: ,BG: ,PAIN: ,GCS: , 01:28,BP: / M,PULSE: ,RR: R,SPO2: 93 Ox,ETCO2: ,BG: ,PAIN: ,GCS: , 01:28,BP: 149/74 M,PULSE: 77,RR: 18 R,SPO2: Ox,ETCO2: ,BG: ,PAIN: ,GCS: , 01:28,BP: / M,PULSE: ,RR: R,SPO2: Ox,ETCO2: ,BG: ,PAIN: ,GCS: 15, 01:40,At Destination 01:56,Call Closed Disclaimer v1.1 Copyright 2020 [employer] This EMS Care Summary contains data elements from the applicable legal record (which may be displayed differently). It is designed to provide pertinent information for the following purposes: continuity of care, clinical quality, and state data reporting. The complete legal record is available to ED staff and administrators of the receiving hospital in [employer]'s Patient Tracker. All data is provided "as is."
[~2021-08-29 01:42] MED LIST changes: +MEDROLDOSEPACK PO
[2021-08-29 01:48] VITALS: BP 143/55
[2021-08-29] MEDS ORDERED: BACLOFEN 10MG T10 MG PO (02:23)
[2021-08-29] MEDS ORDERED: BUPROPION XL300 MG PO (02:24)
[2021-08-29] MEDS ORDERED: CILOSTAZOL 100100 MG PO (02:25)
[2021-08-29] MEDS ORDERED: CEQUA1 EACH EA. EYE (02:27)
[2021-08-29] MEDS ORDERED: DALIRESP500 MCG PO (02:28)
[2021-08-29] MEDS ORDERED: DILAUDID 2 MG TA2 MG PO (02:29)
[2021-08-29] MEDS ORDERED: FAMOTIDINE 40 M40 M1 PO (02:30)
[2021-08-29] MEDS ORDERED: FENOFIBRATE (02:31)
[2021-08-29] MEDS ORDERED: FEXOFENADINE (02:33)
[2021-08-29] MEDS ORDERED: FLONASE 0.05%50 MCG NARES (02:33)
[2021-08-29] MEDS ORDERED: NEURONTIN100 MG PO (02:34)
[2021-08-29] MEDS ORDERED: HYDRALAZINE 5050 MG PO (02:34)
[2021-08-29] MEDS ORDERED: LEVO-T100 MCG PO (02:35)
[2021-08-29] MEDS ORDERED: SUPER THERAVIT1 EACH PO (02:36)
[2021-08-29] MEDS ORDERED: LOPRESSOR50 MG PO (02:36)
[2021-08-29] MEDS ORDERED: MINIPRESS1 MG PO (02:37)
[2021-08-29] MEDS ORDERED: PLAVIX 75 MG TA75 MG PO (02:37)
[2021-08-29] MEDS ORDERED: SEROQUEL 25 MG25 M1 PO (02:38)
[2021-08-29] MEDS ORDERED: ONZETRA XSAIL11 MG SUBQ (02:39)
[2021-08-29] MEDS ORDERED: ZOLOFT100 MG PO (02:39)
[2021-08-29] MEDS ORDERED: ZANAFLEX4 M1 PO (02:39)
[2021-08-29 02:47] LABS: INFLUENZA A ANTIGEN Negative (Negative); INFLUENZA B ANTIGEN Negative (Negative)
[2021-08-29 03:00] LABS: ABSOLUTE BASOPHILS 0.1 thou/uL (0.0-0.2); ABSOLUTE EOSINOPHILS 0.2 thou/uL (0.0-0.7); ABSOLUTE LYMPHOCYTES 0.9 thou/uL (0.8-5.3); ABSOLUTE NEUTROPHILS 6.8 thou/uL (1.6-8.1); BASOPHILS 0.6 %; EOSINOPHILS 2.5 %; HEMATOCRIT 29.1 % (37.0-47.0); HEMOGLOBIN 9.9 gm/dL (12.0-15.0); LYMPHOCYTES 10.2 %; MCH 32.3 pg (26.0-34.0); MCHC 34.2 g/dL (28.0-37.0); MCV 94.7 fL (80.0-100.0); MPV 7.3 fl. (7.2-11.1); NUCLEATED RBCS 0 /100WBC; PLATELET COUNT* 300 thou/uL (150-400); POLYS 75.7 %; RBC 3.08 mil/uL (4.20-5.00); RDW-CV 12.8 % (10.5-14.5)
[2021-08-29 03:20] LABS: CALCIUM 8.8 mg/dL (8.5-10.1); CREATININE 0.7 mg/dL (0.6-1.3); POTASSIUM 3.3 mmol/L (3.5-5.1)
[2021-08-29 03:30] LABS: ALBUMIN 2.8 g/dL (3.4-5.0); MAGNESIUM 1.3 mg/dL (1.8-2.4); TOTAL BILIRUBIN 0.3 mg/dL (<0.1-1.0); TOTAL PROTEIN 5.5 g/dL (6.4-8.2)
[2021-08-29 04:27] LABS: URINE BILIRUBIN NEGATIVE (Negative); URINE BLOOD NEGATIVE (Negative); URINE CLARITY CLEAR; URINE COLOR YELLOW; URINE GLUCOSE-RANDOM NEGATIVE (Negative); URINE KETONES NEGATIVE (Negative); URINE LEUKOCYTES-REFLEX TRACE (Negative); URINE NITRITE-REFLEX NEGATIVE (Negative); URINE PROTEIN 2+ (Negative); URINE SPECIFIC GRAVITY 1.025 (1.005-1.030); URINE UROBILINOGEN 0.2 E.U./dl (0.2-1.0)
[2021-08-29 05:45] VITALS: BP 153/78
[2021-08-29 06:00] LABS: CASTS None Seen /LPF (None Seen); SQUAMOUS 4-10 Moderate /LPF (0-3)
[2021-08-29 06:01] LABS: BACTERIA-REFLEX None Seen /HPF (None Seen); CRYSTALS None Seen /LPF (None Seen); URINE RBC None Seen /HPF (0-2); URINE WBC-REFLEX 0-5 Rare /HPF (0-5)
[2021-08-29 08:13] VITALS: BP 146/72
--- NOTE | 2021-08-29 15:22 | EKG ---
[place] [address] ELECTROCARDIOGRAM REPORT Name: JULIETTE GRANT Room: [address]#: [id number] Admission: 08/29/21 Attend Phys: Shannan Dahl, Discharge: Date of : 48 Date of Service: 08/29/21 0145 Report #: [id number] THIS REPORT FOR: //name// [facility] ED Test Date: 2021-08-29 Test Time: 01:45:26 Pat Name: JULIETTE GRANT Department: Room: [facility] Gender: F Analytical Laboratory Technician: : 1950 Requested By: Dona Bob Order Number: [id number] MD: Andi Allen Measurements Intervals [place] Rate: 71 P: 64 VT: 166 QRS: 33 QRSD: 92 T: 56 QT: 425 QTc: 462 Interpretive Statements Sinus rhythm Compared to ECG 06/10/2019 10:36:59 No significant changes Electronically Signed On 08-29-2021 15:21:40 SALES ASSOCIATE FISHING by Andi Allen [email or web address] <ELECTRONICALLY SIGNED> By: Andi Allen MD, FACC 08/29/21 1521 0145 0145 Andi Allen MD, FAC /EPI
[2021-08-29 16:05] VITALS: BP 190/78
[2021-08-29 20:00] VITALS: BP 107/62
[2021-08-30 02:50] LABS: CALCIUM 8.7 mg/dL (8.5-10.1); CREATININE 0.6 mg/dL (0.6-1.3); POTASSIUM 3.8 mmol/L (3.5-5.1)
[2021-08-30 03:09] LABS: ABSOLUTE BASOPHILS 0.1 thou/uL (0.0-0.2); ABSOLUTE EOSINOPHILS 0.3 thou/uL (0.0-0.7); ABSOLUTE LYMPHOCYTES 1.2 thou/uL (0.8-5.3); ABSOLUTE MONOCYTES 1.3 thou/uL (0.0-1.2); ABSOLUTE NEUTROPHILS 9.4 thou/uL (1.6-8.1); BASOPHILS 0.9 %; EOSINOPHILS 2.2 %; HEMATOCRIT 31.8 % (37.0-47.0); HEMOGLOBIN 10.7 gm/dL (12.0-15.0); LYMPHOCYTES 9.7 %; MCH 32.2 pg (26.0-34.0); MCHC 33.7 g/dL (28.0-37.0); MCV 95.6 fL (80.0-100.0); MONOCYTES 10.5 %; NUCLEATED RBCS 0 /100WBC; PLATELET COUNT* 357 thou/uL (150-400); POLYS 76.7 %; RBC 3.33 mil/uL (4.20-5.00); RDW-CV 12.7 % (10.5-14.5); WBC 12.2 thou/uL (4.0-11.0)
[2021-08-30 08:00] VITALS: BP 153/64; BP 174/64
[2021-08-30 14:53] VITALS: BP 174/64
[2021-08-30 15:11] VITALS: BP 174/64
== END 2021-08-30 17:20 | disposition home or self-care (01) ==
LOC: M.ERS 01:42 → M.TBA-ER 04:54 → M.3W 05:51
PROVIDERS: Emergency Medicine; Internal Medicine; ADMIT Internal Medicine; ATTEND Internal Medicine
DX: F41.9 Anxiety disorder, unspecified (principal); E87.1 Hypo-osmolality and hyponatremia; E87.6 Hypokalemia; D64.9 Anemia, unspecified; J44.9 Chronic obstructive pulmonary disease, unspecified; M19.90 Unspecified osteoarthritis, unspecified site; G89.29 Other chronic pain; M54.9 Dorsalgia, unspecified; Z20.822 Contact with and (suspected) exposure to COVID-19; F32.9 Major depressive disorder, single episode, unspecified; E78.00 Pure hypercholesterolemia, unspecified; I25.2 Old myocardial infarction; Z79.01 Long term (current) use of anticoagulants; Z79.899 Other long term (current) drug therapy

== ENCOUNTER 2021-09-01 10:42 | Inpatient (IN) | payer MEDICARE, MEDICAID ==
[~2021-09-01] VITALS: Ht 152.4 cm; Wt 52.6 kg
--- NOTE | ~2021-09-01 | EMS ---
[address] [address] EMS Patient Care Report Name: JULIETTE GRANT Room: [address] [place] [facility]#: [id number] Admission: 09/01/21 Attend Phys: Reji Gay Discharge: Date of : 48 Report #: [id number] THIS REPORT FOR: //name// Report Transmitted: 09/01/2021 22:01 EMS Care Summary [facility] [place] Incident [id number] @ 09/01/2021 09:31 Incident Location [address] [id number] Patient JULIETTE GRANT Female, 70 Years 1950 Patient Address [address] [facility] [address] [id number] Patient History Chronic Obstructive Pulmonary Disease (COPD),Hypothyroidism, unspecified,Unspecified asthma,Heart disease, unspecified,Hyperlipidemia,Myocardial Infarction (NH),Anxiety disorder, unspecified, Patient Allergies , Patient Medications Meclizine, Furosemide, Atorvastatin, Amlodipine, Sertraline, Omeprazole, Diazepam, Metoprolol, Gabapentin, Buspirone, Chief Complaint Fall Disposition Transported No Lights/[place] Dispatch Reason Chest Pain (Non-Traumatic) Transported To [address] [address] EMS Patient Care Report Name: JULIETTE GRANT Room: [address] [place]#: [id number] Admission: 09/01/21 Attend Phys: Reji Gay Discharge: Date of : 48 Report #: [id number] 320 DISPATCHED EMERGENT TO RESIDENCE FOR A FALL WITH CHEST PAIN AND SOA. 320 ARRIVED ON SCENE WITHOUT INCIDENT. UPON ARRIVING ON SCENE, HOME HEALTH LEAD EMS AND FIRE INTO THE APARTMENT AND REPORTED THE PT HAD FALLEN MULTIPLE TIMES TODAY. PT WAS FOUND SITTING IN HER CHAIR, WITH HOME O2 ON VIA NC. PT STATES SHE HAS FALLEN MULTIPLE TIMES THIS MORNING, AND HAS HIT HER HEAD A COUPLE OF THE TIMES. PT HAS NO OBVIOUS TRAUMA TO HER HEAD, AND DENIES HAVING HEAD PAIN. PT DENIES ANY PAIN AT ALL. PT STATES "I THINK I'VE HAD A HEART ATTACK, BECAUSE I JUST KEEP FALLING." PT IS ALERT AND ORIENTED AND ANSWERING QUESTIONS APPROPRIATELY. SHE DENIES CHEST PAIN, SOA, DIZZINESS AND ALL OTHER SYMPTOMS. SHE CONTINUES TO STATE "I JUST KEEP FALLING." A PCSS IS COMPLETED AND NEGATIVE. PT IS SHOWING NO OUTWARD SIGNS OF STROKE. EMS GATHERS PT'S MEDICATIONS TO OBTAIN A LIST AND HOMEHEALTH CALLS HER BOSS TO OBTAIN MORE OF PT'S HISTORY. HOMEHEALTH STATES THE PT WAS IN THE HOSPITAL RECENTLY, FOR AN UNKNOWN REASON, WENT TO A REHAB FACILITY, AND THEN CAME HOME ON THE CONDITION SHE WOULD HAVE HOME HEALTH. PT WAS VERY DIFFICULT TO GET INFORMATION FROM, SHE WOULD IGNORE SOME QUESTIONS AND CHANGE THE CONVERSATION. PT'S VITALS WERE ALL STABLE, SO EMS ASKED PT IF SHE WOULD BE ABLE TO WALK TO THE COT WITH ASSISTANCE. SHE SAID "OH BUT I'M GOING TO PASS OUT." PT WAS REASSESSED AND NOTHING WAS FOUND ABNORMAL. PT THEN STATED SHE COULD WALK WITH ASSISTANCE. EMS ATTEMPTED TO REMOVE PT'S NC TO REPLACE WITH EMS AND SHE REFUSED. PT DID NOT UNDERSTAND THAT EMS WOULD REPLACE IT TO CONTINUE OXYGEN ADMINISTRATION. PT SAT BACK IN HER CHAIR AND RESTED HER HANDS ON HER ABDOMEN, AND SEEMED BOTHERED BY EMS/FIRE TRYING TO ASSIST HER. PT WAS INFORMED THAT WE NEEDED TO GET HER TO THE COT, AND EMS/FIRE HELPED HER TO HER FEET. ONCE STANDING, PT STATED SHE FELT FAINT, BUT DENIED ANY SYMPTOMS OF DIZZINESS, NAUSEA, LIGHTHEADEDNESS, JUST STATING "I FEEL FAINT." PT WAS ABLE TO WALK WITH ASSISTANCE TO THE COT. PT SAT ON THE COT AND WAS SECURED VIA SEATBELTS AND SIDERAILS. PT WAS LOADED INTO THE AMBULANCE WITHOUT INCIDENT. TREATMENTS AND INTERVENTIONS WERE EXECUTED AT THIS TIME. EMS ATTEMPTED TO GET MORE DETAIL FROM PT, BUT SHE WOULD NOT GIVE ANY MORE DETAIL. PT INFORMED EMS THAT SHE HAD NOT TAKEN HER MEDICATIONS THIS MORNING BECAUSE "I WOKE UP AND KEPT FALLING DOWN." ALL OF PT'S VITALS REMAINED NORMAL AND STABLE. PT DENIED ANY LOSS OF CONSCIOUSNESS WITH THESE FALLS. EMS ATTEMPTED TO GET DEMOGRAPHICS FROM PT, WHO STARTED TO MUMBLE AND SPEAK VERY QUIETLY. WHEN ASKED FOR PT'S SOCIAL SECURITY NUMBER, SHE GAVE HER ADDRESS. WHEN ASKED AGAIN, SHE MUMBLED A COUPLE NUMBERS, THEN SAID I DON'T KNOW IT. PT ANSWERED ORIENTATION QUESTIONS AGAIN APPROPRIATELY. PT WAS VERY DAZED AND SEEMED LETHARGIC. PT REPORTED SHE WAS VERY TIRED WELL. WHEN EMS ASKED MORE QUESTIONS PT WOULD ANSWER SOME OF THEM LOUDLY, CLEAR, AND APPROPRIATE, AND OTHERS SHE WOULD MUMBLE SHE DIDN'T KNOW. PT APPEARED TO BE FALLING ASLEEP ON EMS, SO TRANSPORT BEGAN. EMS WAS ALREADY SUSPECTING A MEDICATION ERROR CAUSING PT TO BE LETHARGIC AND TIRED. HOME HEALTH WAS UNFAMILIAR WITH THE PT, SO SHE DIDN'T KNOW THE PT'S MEDICATION REGIMEN. PT DID STATE WHEN SHE WAS WOKEN UP, THAT SHE HAD FALLEN A LOT BEFORE HER LAST HOSPITALIZATION. PT REMAINED SELECTIVE WHEN ANSWERING QUESTIONS, SOME OF WHICH SHE WOULD SPEAK UP FOR AND OTHERS SHE WOULD JUST MOAN TO. PT ALSO WAS SLEEP TALKING AND NOT MAKING ANY SENSE. PT'S VITALS REMAINED STABLE THROUGHOUT TRANSPORT. PT'S CONDITION DID NOT REALLY VARY THROUGHOUT EMS CARE, OTHER THAN [address] [address] EMS Patient Care Report Name: JULIETTE GRANT Room: [address] [place] .R#: [id number] Admission: 09/01/21 Attend Phys: Reji Gay Discharge: Date of : 48 Report #: [id number] HER FALLING ASLEEP. UPON ARRIVAL TO [facility], PT WAS UNLOADED FROM THE AMBULANCE. PT WAS WHEELED INSIDE TO TRIAGE. PT REPORT WAS GIVEN TO RN WHO SIGNED ACCEPTING PT. PT WAS WOKEN UP AND TOLD SHE WOULD HAVE A WHEEL CHAIR TO SIT IN. PT PERKED UP REALLY FAST AND SAT UP WITH EMS ASSISTANCE. PT STOOD AND PIVOTED TO THE CHAIR WITHOUT DIFFICULTY. PT'S OXYGEN SUPPLY WAS SWITCHED. PT WAS WHEELED TO THE WAITING ROOM PER RN. PT'S DEMOGRAPHICS WERE PROVIDED TO REGISTRATION. NURSE SIGNED TABLET ACCEPTING PT. TRANSFER OF CARE OFFICIAL AT THIS TIME. Initial Vitals @09:34Pain: 0/10, @09:54SpO2: 95, @09:56SpO2: 99, @09:57SpO2: 98, @10:01SpO2: 99, @10:06SpO2: 98, @10:11SpO2: 99, @10:11SpO2: 99, @10:16SpO2: 99, @10:21SpO2: 98, @10:25SpO2: 96, @10:31SpO2: 97, @09:54 @09:37P: 70,R: 16,BP: 135/68,Revised Trauma: 8, @09:57P: 70,R: 16,BP: 131/62,Revised Trauma: 8, @10:11P: 67,R: 16,BP: 120/55,Revised Trauma: 8, @10:21P: 65,R: 16,BP: 134/64,Revised Trauma: 8, @10:31P: 62,R: 16,BP: 104/53,Revised Trauma: 8, @09:37GCS: 15, @09:57GCS: 15, @10:11GCS: 14, @10:21GCS: 14, @10:31GCS: 14, @09:34 @09:38 @10:05Glucose: 166, Assessments @09:34MENTAL:SKIN:HEENT:LUNG SOUNDS:ABDOMEN:PELVIS//GI:EXTREMITIES:PULSE:NEURO: Impression Altered Mental Status Procedures @09:34 Oxygen Complications: , Response: [place] [address] EMS Patient Care Report Name: JULIETTE GRANT Room: [address] [place]M [place] M.R.#: [id number] Admission: 09/01/21 Attend Phys: Reji Gay Discharge: Date of : 48 Report #: [id number] @10:07 IV Therapy - cc () Site: Antecubital-Left Response: UnchangedFailed @09:54 3-Lead ECG Response: UnchangedSucceeded Timeline 09:27,Call Received 09:29,Dispatch Notified 09:29,Psap Call 09:31,Dispatched 09:31,En Route 09:34,On Scene 09:34,At Patient 09:34,Oxygen Complications: ,,Response: Unchanged 09:34,BP: / M,PULSE: ,RR: R,SPO2: Ox,ETCO2: ,BG: ,PAIN: 0,GCS: , 09:34,BP: / M,PULSE: ,RR: R,SPO2: Ox,ETCO2: ,BG: ,PAIN: ,GCS: , 09:37,BP: 135/68 M,PULSE: 70,RR: 16 R,SPO2: Ox,ETCO2: ,BG: ,PAIN: ,GCS: , 09:37,BP: / M,PULSE: ,RR: R,SPO2: Ox,ETCO2: ,BG: ,PAIN: ,GCS: 15, 09:38,BP: / M,PULSE: ,RR: R,SPO2: Ox,ETCO2: ,BG: ,PAIN: ,GCS: , 09:54,3-Lead ECG,Response: UnchangedSucceeded, 09:54,BP: / M,PULSE: ,RR: R,SPO2: 95 Ox,ETCO2: ,BG: ,PAIN: ,GCS: , 09:54,BP: / M,PULSE: ,RR: R,SPO2: Ox,ETCO2: ,BG: ,PAIN: ,GCS: , 09:56,BP: / M,PULSE: ,RR: R,SPO2: 99 Ox,ETCO2: ,BG: ,PAIN: ,GCS: , 09:57,BP: / M,PULSE: ,RR: R,SPO2: 98 Ox,ETCO2: ,BG: ,PAIN: ,GCS: , 09:57,BP: 131/62 M,PULSE: 70,RR: 16 R,SPO2: Ox,ETCO2: ,BG: ,PAIN: ,GCS: , 09:57,BP: / M,PULSE: ,RR: R,SPO2: Ox,ETCO2: ,BG: ,PAIN: ,GCS: 15, 10:01,BP: / M,PULSE: ,RR: R,SPO2: 99 Ox,ETCO2: ,BG: ,PAIN: ,GCS: , 10:05,BP: / M,PULSE: ,RR: R,SPO2: Ox,ETCO2: ,B,PAIN: ,GCS: , 10:06,BP: / M,PULSE: ,RR: R,SPO2: 98 Ox,ETCO2: ,BG: ,PAIN: ,GCS: , 10:07,IV Therapy - cc Site: Antecubital-Left,Response: UnchangedFailed, 10:11,BP: / M,PULSE: ,RR: R,SPO2: 99 Ox,ETCO2: ,BG: ,PAIN: ,GCS: , 10:11,BP: / M,PULSE: ,RR: R,SPO2: 99 Ox,ETCO2: ,BG: ,PAIN: ,GCS: , 10:11,BP: 120/55 M,PULSE: 67,RR: 16 R,SPO2: Ox,ETCO2: ,BG: ,PAIN: ,GCS: , 10:11,BP: / M,PULSE: ,RR: R,SPO2: Ox,ETCO2: ,BG: ,PAIN: ,GCS: 14, 10:12,Depart Scene 10:16,BP: / M,PULSE: ,RR: R,SPO2: 99 Ox,ETCO2: ,BG: ,PAIN: ,GCS: , 10:21,BP: / M,PULSE: ,RR: R,SPO2: 98 Ox,ETCO2: ,BG: ,PAIN: ,GCS: , 10:21,BP: 134/64 M,PULSE: 65,RR: 16 R,SPO2: Ox,ETCO2: ,BG: ,PAIN: ,GCS: , 10:21,BP: / M,PULSE: ,RR: R,SPO2: Ox,ETCO2: ,BG: ,PAIN: ,GCS: 14, 10:25,BP: / M,PULSE: ,RR: R,SPO2: 96 Ox,ETCO2: ,BG: ,PAIN: ,GCS: , 10:31,BP: / M,PULSE: ,RR: R,SPO2: 97 Ox,ETCO2: ,BG: ,PAIN: ,GCS: , 10:31,BP: 104/53 M,PULSE: 62,RR: 16 R,SPO2: Ox,ETCO2: ,BG: ,PAIN: ,GCS: , 10:31,BP: / M,PULSE: ,RR: R,SPO2: Ox,ETCO2: ,BG: ,PAIN: ,GCS: 14, 10:34,At Destination 10:52,[place] [address] EMS Patient Care Report Name: JULIETTE GRANT Room: [address] [place].#: [id number] Admission: 09/01/21 Attend Phys: Reji Gay Discharge: Date of : 48 Report #: [id number] v1.1 Copyright 2020 [employer] This EMS Care Summary contains data elements from the applicable legal record (which may be displayed differently). It is designed to provide pertinent information for the following purposes: continuity of care, clinical quality, and state data reporting. The complete legal record is available to ED staff and administrators of the receiving hospital in [employer]'s Patient Tracker. All data is provided "as is."
[~2021-09-01 10:42] MED LIST changes: +BACLOFEN 10MG T10 MG PO; +BUPROPION XL300 MG PO; +CEQUA1 EACH EA. EYE; +CILOSTAZOL 100100 MG PO; +FAMOTIDINE 40 M40 M1 PO; +FENOFIBRATE; +FEXOFENADINE; +FLONASE 0.05%50 MCG NARES; +HYDRALAZINE 5050 MG PO; +LEVO-T100 MCG PO; +LOPRESSOR50 MG PO; +MINIPRESS1 MG PO; +NEURONTIN100 MG PO; +ONZETRA XSAIL11 MG SUBQ; +PLAVIX 75 MG TA75 MG PO; +SEROQUEL 25 MG25 M1 PO; +SUPER THERAVIT1 EACH PO; +ZOLOFT100 MG PO
[2021-09-01 12:24] LABS: ABSOLUTE BASOPHILS 0.1 thou/uL (0.0-0.2); ABSOLUTE EOSINOPHILS 0.2 thou/uL (0.0-0.7); ABSOLUTE LYMPHOCYTES 1.1 thou/uL (0.8-5.3); ABSOLUTE MONOCYTES 1.1 thou/uL (0.0-1.2); ABSOLUTE NEUTROPHILS 11.3 thou/uL (1.6-8.1); BASOPHILS 0.8 %; EOSINOPHILS 1.6 %; HEMATOCRIT 31.6 % (37.0-47.0); HEMOGLOBIN 10.6 gm/dL (12.0-15.0); LYMPHOCYTES 7.7 %; MCH 31.8 pg (26.0-34.0); MCHC 33.5 g/dL (28.0-37.0); MONOCYTES 8.1 %; MPV 7.8 fl. (7.2-11.1); NUCLEATED RBCS 0 /100WBC; PLATELET COUNT* 369 thou/uL (150-400); POLYS 81.8 %; RBC 3.33 mil/uL (4.20-5.00); RDW-CV 12.8 % (10.5-14.5); WBC 13.8 thou/uL (4.0-11.0)
--- NOTE | 2021-09-01 12:29 | EKG ---
[place] [address] ELECTROCARDIOGRAM REPORT Name: JULIETTE GRANT Room: [facility]#: [id number] Admission: 09/01/21 Attend Phys: Discharge: Date of : 48 Date of Service: 09/01/21 1158 Report #: [id number] THIS REPORT FOR: //name// [facility] ED Test Date: 2021-09-01 Test Time: 11:58:18 Pat Name: JULIETTE GRANT Department: Room: Gender: Twister Doffer: TJYasmin : 1950 Requested By: Kamilah Melendez Order Number: [id number] MD: Rigo Gasca Measurements Intervals Bruni Rate: 65 P: 65 IL: 174 QRS: 41 QRSD: 110 T: 41 QT: 459 QTc: 478 Interpretive Statements Sinus rhythm Left atrial enlargement Baseline wander in lead(s) V2 Compared to ECG 08/29/2021 01:45:26 Atrial premature complex(es) now present Electronically Signed On 09-01-2021 12:29:36 SUSTAINABILITY EXECUTIVE DIRECTOR by Rigo Gasca [email or web address] <ELECTRONICALLY SIGNED> By: Rigo Gasca MD, FAC 09/01/21 1229 1158 1158 Rigo Gasca MD, [facility] /EPI
[2021-09-01 12:30] LABS: CALCIUM 9.2 mg/dL (8.5-10.1); POTASSIUM 4.3 mmol/L (3.5-5.1)
[2021-09-01 12:34] LABS: CREATININE 2.6 mg/dL (0.6-1.3)
[2021-09-01 12:42] LABS: ALBUMIN 3.5 g/dL (3.4-5.0); TOTAL BILIRUBIN 0.3 mg/dL (<0.1-1.0); TOTAL PROTEIN 6.7 g/dL (6.4-8.2)
[2021-09-01 13:51] LABS: URINE BILIRUBIN NEGATIVE (Negative); URINE BLOOD NEGATIVE (Negative); URINE CLARITY CLEAR; URINE COLOR YELLOW; URINE GLUCOSE-RANDOM NEGATIVE (Negative); URINE KETONES NEGATIVE (Negative); URINE LEUKOCYTES-REFLEX NEGATIVE (Negative); URINE NITRITE-REFLEX NEGATIVE (Negative); URINE PROTEIN 1+ (Negative); URINE SPECIFIC GRAVITY 1.015 (1.005-1.030); URINE UROBILINOGEN 0.2 E.U./dl (0.2-1.0)
[2021-09-01 13:59] LABS: AMP/METHAMP Negative (Negative); BARBITURATES Negative (Negative); BENZODIAZEPINES POSITIVE (Negative); COCAINE Negative (Negative); METHADONE Negative (Negative); OPIATES Negative (Negative); PCP Negative (Negative); THC Negative (Negative)
[2021-09-01 17:27] VITALS: BP 107/41
[2021-09-01 18:18] LABS: PCO2 38.4 mmHg (35.0-45.0); pH 7.323 (7.340-7.450)
[2021-09-01 20:49] VITALS: BP 99/47
[2021-09-02 00:57] VITALS: BP 142/57
[2021-09-02 05:19] VITALS: BP 116/51
[2021-09-02 05:37] LABS: ALBUMIN 2.6 g/dL (3.4-5.0); CALCIUM 8.3 mg/dL (8.5-10.1); MAGNESIUM 1.7 mg/dL (1.8-2.4); PHOSPHORUS* 3.4 mg/dL (2.5-4.9); POTASSIUM 3.9 mmol/L (3.5-5.1)
[2021-09-02 05:38] LABS: CREATININE 1.5 mg/dL (0.6-1.3)
--- NOTE | 2021-09-02 05:38 | NUR ---
PT ARRIVED ON FLOOR 1944 LETHARGIC AND WASNT ABLE TO ANSWER ANY QUESTIONS. AROUND MIDNIGHT SHE WOKE UP, FULLY ALERT AND ORIENTED AND VERY HUNGRY AND THRISTY. I GAVE HER SOME FOOD, SHE WAS UP FOR AWHILE EATING AND SAID SHE FELT MUCH BETTER. NO REPORTS OF ANY PAIN OR NAUSEA. SHE COULDNT REMEMBER COMING INTO HOSPITAL AND HAD TO ASK WHAT HAPPENED AND WHY SHE WAS THERE. SHE RECEIVED FLUIDS SCHEDULED. SINUS RHYTHM ON MONITOR. WILL CONTINUE TO MONITOR.
[2021-09-02 08:15] VITALS: BP 131/65
--- NOTE | 2021-09-02 10:35 | CON ---
[address] [address] CONSULTATION Name: JULIETTE GRANT Room: [address] [place] M.R.#: [id number] Admission: 09/01/21 Attend Phys: Reji Gay Discharge: Date of : 48 Report #: [id number] THIS REPORT FOR: cc: Michael Ruiz MD, Shyam MD Khan,Dimitris Pruitt MD ~ DATE OF CONSULTATION: 09/01/2021 NEPHROLOGY CONSULT REASON FOR CONSULT: Acute kidney injury. HISTORY OF PRESENT ILLNESS: This is a 70-year-old female who I am asked to see for acute kidney injury. She has a creatinine of 2.6 on admission. On 08/30, her creatinine was 0.6. She has no underlying history of chronic kidney disease. She was recently hospitalized, comes in with some altered mental status and falls. She is unable to provide any meaningful history. History is obtained through my discussion with ER nurse practitioner, Mishel, and chart review. The patient is comfortable, does arouse with a sternal rub, but is otherwise very somnolent at this time. REVIEW OF SYSTEMS: Constitutional, psych, heme, eyes, ENT, respiratory, cardiac, GI, , endocrine, all negative except as documented above and as best as can be ascertained. PAST MEDICAL HISTORY: COPD, degenerative joint disease, hypertension, anxiety, hypothyroidism. SOCIAL HISTORY: Former smoker. FAMILY HISTORY: Nonpertinent in this 70-year-old female. PHYSICAL EXAMINATION: VITAL SIGNS: Reviewed. GENERAL: Somnolent. HEENT: Eyes closed. Ears: Externally normal. CARDIOVASCULAR: Regular rate. LUNGS: Diminished. GASTROINTESTINAL: Negative. MUSCULOSKELETAL: Nontender. PSYCHIATRIC: Somnolent. NEUROLOGIC: Altered mental status. LABORATORY DATA: White cell count 14, hemoglobin 10.6, platelets 369. Sodium 127, potassium 4.3, chloride 98, bicarbonate 28, BUN 33, creatinine 2.6, [place] [address] CONSULTATION Name: GRANTJULIETTE Room: [address] IN [facility].#: [id number] Admission: 09/01/21 Attend Phys: Reji Gay Discharge: Date of : 48 Report #: [id number] 115, calcium 9.2, albumin 3.5. Liver functions were okay. ASSESSMENT: 1. Acute kidney injury in the setting of likely volume depletion. Alcohol level was less than 10. Creatinine on admission 2.6. On 08/30, creatinine is 0.6. No underlying history of kidney disease. 2. Hyponatremia with a sodium of 127. On 08/30, it was 134. This may be secondary to volume depletion. She is also on Zoloft as an outpatient. 3. Hypertension. 4. Anxiety. 5. Chronic obstructive pulmonary disease. 6. Degenerative joint disease. 7. Hypothyroidism. PLAN: Hydrate with normal saline. We will recheck her lab again in a.m. Check UA. Check renal ultrasound. Thank you for requesting my opinion in the care and management of this patient. <ELECTRONICALLY SIGNED> By: Dimitris Chavez MD 09/02/21 1035 1219 [id number] Chavez MD /nt
[2021-09-02 12:13] VITALS: BP 142/65
--- NOTE | 2021-09-02 15:34 | NUR ---
ASSUMED PT CARE AT 0730. PT IS A&OX4 AND RESPONDS READILY. ASSESSMENT COMPLETED. VSS. PT EATING WELL. VOIDING WITHOUT DIFFICULTY, PADILLA PAATENT WITH LIGHT YELLOW URINE. PT REPORTED SHE WWAS BORED AND TIRED OF WATCHING TV. GIVEN WORD SEARCH AND PT CONTENT. MEDICATIONS ADMINISTERED ORDERED. SAFETY MEASURES IN PLACE, FLU SHOT GIVEN TODAY PER PT REQUEST. T IS 98.2. PT C/O NO DISCOMFORT OR PAIN.
[2021-09-02 16:48] VITALS: BP 128/60
[2021-09-02 20:00] VITALS: BP 121/55
[2021-09-03 01:02] VITALS: BP 123/58
[2021-09-03 04:22] VITALS: BP 139/65
--- NOTE | 2021-09-03 06:52 | NUR ---
Vitals stable,HR SR,O2 sat 96% on 2L n/c. She had good urine output per patten. This am she requested prn imitrex. She has slept well.
[2021-09-03 08:52] LABS: CALCIUM 8.2 mg/dL (8.5-10.1); CREATININE 0.8 mg/dL (0.6-1.3); POTASSIUM 4.5 mmol/L (3.5-5.1)
--- NOTE | 2021-09-03 09:23 | NUR ---
CM ASSESSMENT: PT A&O. PT INFORMS THAT PRIOR TO ADMIT SHE WAS INDEPENDENT WITH MOBILITY AT HOME AND USED A CANE. PT INFORMS THAT SHE HAS CAREGIVER ASSIST 28 HRS PER WK, AND THEY ASSIST WITH LAUNDRY, ANALOG DEVICE DESIGNER, GROCERY SHOPPING, AND APPOINTMENTS. PT HAS HX OF HH WITH [facility], AND [facility]. CM WILL REMAIN AVAILABLE TO ASSIST AND FOLLOW NEEDED.
[2021-09-03 13:02] VITALS: BP 144/69
[2021-09-03 15:35] VITALS: BP 166/71
[2021-09-03 20:00] VITALS: BP 163/70
--- NOTE | 2021-09-03 20:00 | NUR ---
RECEIVED REPORT AND ASSUMED CARE OF PT, ASSESSMENT COMPLETED. HOB ELEVATED, O2 ON AT 2L/NC, NO SOA NOTED. LG BRUISE NOTED TO LT SHOULDER, PT ASKING HOW SHE GOT THAT, EXPLAINED BECAUSE HER HER FREQ FALLS BEFORE COMING TO HOSPITAL. STATES SHE DOESN'T REMEMBER ANY OF IT. TELEMETRY ON SHOWING SR. WILL CONT TO MONITOR AND ASSIST NEEDED.
[2021-09-04] VITALS: BP 148/61
[2021-09-04 04:00] VITALS: BP 174/78
--- NOTE | 2021-09-04 06:31 | NUR ---
SLEPT WELL TONIGHT. NO CHANGES IN ASSESSMENT. ASSIST WITH REPOSITIONING IN BED. ABLE TO USE BEDPAN FOR BM. TELEMETRY CONT TO SHOW SR. HS GOALS OF REST AND SAFETY ACHIEVED.
[2021-09-04 08:00] VITALS: BP 165/77
--- NOTE | 2021-09-04 10:11 | NUR ---
PLAN OF CARE: PLAN FOR THE PT TO HAVE PT/OT EVAL TO ASSIST IN DETERMINING PT'S MOBILITY AND D/C PLANNING FOR HOME WITH HH VS SNF PLACEMENT AT D/C. CM WILL REMAIN AVAILABLE TO ASSIST AND FOLLOW NEEDED.
[2021-09-04 14:04] VITALS: BP 145/61
[2021-09-04] MEDS ORDERED: VITAMIN D325 MC2 PO (14:14)
[2021-09-04 15:17] VITALS: BP 145/61
--- NOTE | 2021-09-04 17:28 | NUR ---
ASSUMED PT CARE AT 1930. ASSESSMENT COMPLETED CHARTED. ABLE TO MAKE NEEDS KNOWN. UP WITH 1 ASSIST. DISCHARGE APPROVED TO GO HOME WITH MEDIA RELATIONS ASSOCIATE PER AMBULANCE AT THIS TIME. ALL BELONGINGS TAKEN WITH HER HOME HEALTH AID. IV, HEART MONITOR AND PADILLA REMOVED. 2L O2 CONTINUING FOR TRANSPORT. REPORT GIVEN TO AMBULANCE DRIVERS. CONTINUAL COMPLAINTS OF HEADACHE WITH NO RELIEF.
== END 2021-09-04 17:30 | disposition home or self-care (01) | DRG 682 ==
LOC: M.ERS 10:42 → M.TBA-ER 13:27 → M.2W 13:27
PROVIDERS: Internal Medicine; Internal Medicine Nephrology; Nurse Practitioner Family; ADMIT Internal Medicine; ATTEND Internal Medicine
DX: N17.0 Acute kidney failure with tubular necrosis (principal); G93.41 Metabolic encephalopathy; R65.11 Systemic inflammatory response syndrome (SIRS) of non-infectious origin with acute organ dysfunction; E87.1 Hypo-osmolality and hyponatremia; I10 Essential (primary) hypertension; E78.00 Pure hypercholesterolemia, unspecified; Z96.653 Presence of artificial knee joint, bilateral; F32.9 Major depressive disorder, single episode, unspecified; Z96.641 Presence of right artificial hip joint; J44.9 Chronic obstructive pulmonary disease, unspecified; R40.0 Somnolence; E03.9 Hypothyroidism, unspecified; F41.9 Anxiety disorder, unspecified; M19.90 Unspecified osteoarthritis, unspecified site; E86.0 Dehydration; Z20.822 Contact with and (suspected) exposure to COVID-19; Z90.710 Acquired absence of both cervix and uterus; Z95.5 Presence of coronary angioplasty implant and graft; I25.2 Old myocardial infarction; Z90.49 Acquired absence of other specified parts of digestive tract; Z88.6 Allergy status to analgesic agent; Z88.0 Allergy status to penicillin; Z88.8 Allergy status to other drugs, medicaments and biological substances; Z87.891 Personal history of nicotine dependence; Z23 Encounter for immunization